=== PATIENT | male | born 1985 | race African-American/Black ===

== ENCOUNTER 2021-05-14 20:22 | Inpatient (IN) | payer OTHER ==
[2021-05-14 22:03] VITALS: BMI 24.3
[2021-05-14] MEDS ORDERED: hydrOXYzine PAMOATE 25 MG CAPSULE (FP) PO PRN (22:15)
[2021-05-14] MEDS ORDERED: P-EPHED 60MG/TRIPROLIDI 2.5MG TABLET PO PRN (22:15)
[2021-05-14] MEDS ORDERED: guaiFENesin 200 MG/10 ML 10 ML UNIT-DOSE CUPS PO PRN (22:15)
[2021-05-14] MEDS ORDERED: MENTHOL/PHENOL 1 EACH UD MM PRN (22:15)
[2021-05-14] MEDS ORDERED: IBUPROFEN 400 MG TABLET (FP) PO PRN (22:15)
[2021-05-14] MEDS ORDERED: MAGNESIUM CITRATE 300 ML BOTTLE PO PRN (22:15)
[2021-05-14] MEDS ORDERED: DICYCLOMINE HCL 10 MG CAPSULE PO PRN (22:15)
[2021-05-14] MEDS ORDERED: BISMUTH SUBSALICYLATE 524 MG/30 ML PO PRN (22:15)
[2021-05-14] MEDS ORDERED: MAGNESIUM HYDROX 2400MG/30ML ORAL SUSPENSION 30 ML CUP PO PRN (22:15)
[2021-05-14] MEDS ORDERED: ACETAMINOPHEN 325 MG TABLET (FP) PO PRN ×2 (22:15)
[2021-05-14] MEDS ORDERED: MAG HYDROX/AL HYDROX/SIMETH 30 ML UNIT-DOSE CUP PO PRN (22:15)
[2021-05-14] MEDS ORDERED: ONDANSETRON *ODT* 4 MG TABLET SL PRN (22:15)
[2021-05-14] MEDS ORDERED: METHOCARBAMOL 500 MG TABLET PO PRN (22:15)
[2021-05-15] MEDS: NICOTINE 10 MG CARTRIDGE (INHALER) IH PRN ×4 (06:52→22:28)
[2021-05-15] MEDS: NICOTINE 21 MG/24 HOURS TOPICAL PATCH TD SCH (10:22)
[2021-05-15] MEDS: PRENATAL VITAMINS W/ FOLIC ACID TABLET (FP) PO SCH (10:22)
[2021-05-15] MEDS ORDERED: THIAMINE HCL 100 MG TABLET (FP) PO SCH (22:00)
[2021-05-15] MEDS ORDERED: MELATONIN 5 MG TABLETS PO SCH (22:00)
[2021-05-16] MEDS: NICOTINE 10 MG CARTRIDGE (INHALER) IH PRN ×2 (05:53→10:25)
[2021-05-16 09:46] VITALS: BP 117/64; PULSE 78; TEMP 98.2
[2021-05-16] MEDS: PRENATAL VITAMINS W/ FOLIC ACID TABLET (FP) PO SCH (10:23)
[2021-05-16] MEDS: NICOTINE 21 MG/24 HOURS TOPICAL PATCH TD SCH (10:25)
== END 2021-05-16 14:11 | disposition home or self-care (01) | DRG 775 ==
LOC: YASAS 20:22 → Y6N 23:11
PROVIDERS: ADMIT Allergy & Immunology; ATTEND Allergy & Immunology
DX: F10.230 Alcohol dependence with withdrawal, uncomplicated (principal); F17.213 Nicotine dependence, cigarettes, with withdrawal; Z98.890 Other specified postprocedural states
CPT/HCPCS: C9803; U0003; U0005